=== PATIENT | female | born 1950 | race Caucasian/White ===

== ENCOUNTER 2020-09-05 06:24 | Observation (INO) | payer OTHER, MEDICARE ==
--- NOTE | 2020-09-05 06:52 | EDM.PDOC ---
<Juan Carlos Rossi M - Last Filed: 09/05/20 06:49> ED HPI GENERAL MEDICAL PROBLEM - General Chief Complaint: General Time Seen by Provider: 09/05/20 06:49 Source of Information: Reports: Patient History Limitations: Reports: No Limitations - History of Present Illness INITIAL COMMENTS - FREE TEXT/NARRATIVE: Eli arrives in the ED with her relative. Since yesterday she has had right ear pain,cough,and dizziness. Her grandson has been diagnosed with Srepthroat. She is fully immunized against COVID-19. Her Medical history includes GERD,HTN and HLD. She dinies any fever or chills. - Related Data Allergies Allergy/AdvReac Type Severity Reaction Status Date / Time No Known Allergies Allergy Verified 09/05/20 06:31 Home Meds: Home Meds Acetaminophen [Tactinal] 650 mg PO Q4H PRN 09/05/20 [History] Calcium Carbonate/Vitamin D3 [Calcium 600-Vit D3 800 Tab] 1 tab PO DAILY 09/05/20 [History] Ferrous Sulfate [Slow Release Iron] 250 mg PO DAILY 09/05/20 [History] Ibuprofen 200 mg PO Q6H PRN 09/05/20 [History] Pantoprazole Sodium [Protonix] 40 mg PO DAILY 09/05/20 [History] Rosuvastatin [Crestor] 10 mg PO DAILY 09/05/20 [History] lisinopriL [Lisinopril] 10 mg PO DAILY 09/05/20 [History] Past Medical History HEENT History: Reports: Cataract, Glaucoma, Hard of Hearing Cardiovascular History: Reports: High Cholesterol, Hypertension Respiratory History: Reports: Bronchitis, Recurrent Gastrointestinal History: Reports: GERD 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 ED EXAM, GENERAL - Physical Exam Exam: See Below Exam Limited By: No Limitations General Appearance: Alert, WD/WN Ears: Normal External Exam Ear Exam: Bilateral Ear: Auricle Normal, Canal Normal, TM normal Throat/Mouth: Normal Inspection Head: Atraumatic Respiratory/Chest: No Respiratory Distress, Lungs Clear, Normal Breath Sounds Departure - Departure Disposition: Refer to Observation Clinical Impression: Acute bronchitis with bronchospasm, Acute respiratory alkalosis, Elevated brain natriuretic peptide (BNP) level, Elevated WBC count, Left shift, Elevated C- reactive protein (CRP), Moderate dehydration, Ketonuria, Tension headache, Fever, Former smoker - Discharge Information Referrals: Myrna Matta, [employer] [Primary Care Provider] - Forms: ED Department Discharge Sepsis Event Note (ED) - Evaluation Sepsis Screening Result: No Definite Risk - Problem List & Annotations (1) LRTI (lower respiratory tract infection) SNOMED Code(s): 20741778 Code(s): J22 - UNSPECIFIED ACUTE LOWER RESPIRATORY INFECTION Status: Acute (2) Otalgia SNOMED Code(s): 03489181 Code(s): H92.09 - OTALGIA, UNSPECIFIED EAR Status: Acute - Problem List Review Problem List Initiated/Reviewed/Updated: Yes <Diego Linn - Last Filed: 09/05/20 09:05> ED HPI GENERAL MEDICAL PROBLEM - History of Present Illness INITIAL COMMENTS - FREE TEXT/NARRATIVE: c/o dizzy and sob x 24h temp 100.8 at home lives alone, has 2 grandchildren, one with strep smoked in past, stopped 40y ago no h/o COPD or asthma, has had bronchitis in past no heart issues in past EKG with mild tachy, no acute changes, no comparison did have wheezing on arrival, cleared with Duoneb x 1 altho still feels sob CxR 2v on prelim ED read without infiltrate or effusion, prominence of interstitial markings noted may be viral altho degree of CRP elevation impressive has GRAJEDA, given APAP 1000 mg PO and Toradol IV no fever here, took no APAP at home today ED ROS GENERAL - Review of Systems Review Of Systems: See Below Constitutional: Reports: Fever, Weakness, Decreased Appetite HEENT: Reports: No Symptoms Respiratory: Reports: Shortness of Breath Cardiovascular: Reports: Lightheadedness. Denies: Chest Pain Endocrine: Reports: No Symptoms GI/Abdominal: Reports: No Symptoms : Reports: No Symptoms Musculoskeletal: Reports: No Symptoms Skin: Reports: No Symptoms Neurological: Reports: No Symptoms Psychiatric: Reports: No Symptoms Hematologic/Lymphatic: Reports: No Symptoms Immunologic: Reports: No Symptoms ED EXAM, GENERAL - Physical Exam Exam Limited By: No Limitations General Appearance: Alert, WD/WN, Mild Distress, Other (appears mild ill, weak) Eye Exam: Bilateral Eye: PERRL Ears: Hearing Grossly Normal Nose: Normal Inspection Throat/Mouth: Normal Voice, No Airway Compromise Head: Atraumatic, Normocephalic Respiratory/Chest: Other (mild insp/exp wheeze, no purse lips, no retractions, using accessory muscles, talks 8-10 word sentences) Cardiovascular: Regular Rate, Rhythm, No Edema, No Gallop, Tachycardia, Other (2/6 MOOK at LSB) GI/Abdominal: Soft, Non-Tender, No Distention Back Exam: Normal Inspection, Full Range of Motion. No: CVA Tenderness (R), CVA Tenderness (L) Extremities: Normal Inspection, Non-Tender, No Pedal Edema Neurological: Alert, Oriented, CN II-XII Intact, Normal Cognition, No Motor/Sensory Deficits Psychiatric: Normal Affect, Normal Mood Skin Exam: Warm, Dry, Intact, Normal Color, No Rash Lymphatic: No Adenopathy Course - Vital Signs Last Recorded V/S: Last Vital Signs Temp 37.1 C 09/05/20 08:20 Pulse 96 09/05/20 08:20 Resp 19 09/05/20 08:20 BP 142/77 H 09/05/20 08:20 Pulse Ox 95 09/05/20 08:20 - Orders/Labs/Meds Orders: Active Orders 24 hr Category Date Time Status EKG Documentation Completion [RC] ASDIRECTED Care 09/05/20 07:01 Active RT Aerosol Therapy [RC] ASDIRECTED Care 09/05/20 07:01 Active RT Aerosol Therapy [RC] ASDIRECTED Care 09/05/20 08:44 Ordered CXR [Chest 2V] [CR] Stat Exams 09/05/20 06:49 Taken CORONAVIRUS COVID-19 TIFFANIE [MOLEC] Stat Lab 09/05/20 07:17 Ordered CULTURE BLOOD [BC] Urgent Lab 09/05/20 07:32 Received CULTURE BLOOD [BC] Urgent Lab 09/05/20 07:37 Received Levofloxacin/Dextrose 5%-Water [Levaquin in D5W 750 MG/ Med 09/05/20 08:17 Ordered 150 ML] 750 mg Premix Bag 1 bag IV ONETIME Blood Culture x2 Reflex Set [OM.PC] Urgent Oth 09/05/20 07:14 Ordered Isolation [COMM] Routine Oth 09/05/20 07:17 Ordered EKG 12 Lead [EK] Routine Ther 09/05/20 07:01 Ordered Medication Orders Levofloxacin/Dextrose 750 mg/ (Premix) 150 mls @ 100 mls/hr IV ONETIME ONE Stop: 09/05/20 09:46 Last Admin: 09/05/20 08:17 Dose: 100 mls/hr Documented by: KISHAN Labs: Laboratory Tests 09/05/20 09/05/20 09/05/20 Range/Units 06:50 07:00 07:00 WBC 13.1 H (3.0-10.3) x10-3/uL RBC 4.76 (3.60-5.20) x10(6)uL Hgb 15.2 (11.4-15.5) g/dL Hct 44.9 (34.2-48.2) % MCV 94.2 (76.7-100.5) fL MCH 31.9 (23.9-33.9) pg MCHC 33.9 (31.9-34.8) g/dL RDW 12.5 (12.3-16.5) % Plt Count 120 L (151-488) x10(3)uL MPV 12.3 (7.1-12.4) fL Neut % (Auto) 85.8 H (30.8-76.2) % Lymph % (Auto) 4.9 L (18.4-52.1) % [place] % (Auto) 8.3 (4.4-15.7) % Eos % (Auto) 0.8 (0.6-8.1) % Baso % (Auto) 0.2 (0.2-1.5) % Neut # (Auto) 11.3 H (1.5-6.3) x10-3/uL Lymph # (Auto) 0.6 L (1.0-4.4) x10-3/uL [place] # (Auto) 1.1 H (0.3-1.0) x10-3/uL Eos # (Auto) 0.1 (0.0-0.8) x10-3/uL Baso # (Auto) 0.0 (0.0-0.1) x10-3/uL POC VBG pH (7.32-7.43) pH Units POC VBG pCO2 (41-51) mmHg POC VBG HCO3 (21-29) mmol/L VBG Base Excess (-2-3) mmol/L O2 Delivery Device Sodium 140 (135-145) mmol/L Potassium 4.0 (3.5-5.3) mmol/L Chloride 102 (100-110) mmol/L Carbon Dioxide 25 (21-32) mmol/L BUN 16 (7-18) mg/dL Creatinine 1.0 (0.55-1.02) mg/dL Est Cr Clr Drug Dosing TNP Estimated GFR (MDRD) 55 L (>60) BUN/Creatinine Ratio 16.0 (9-20) Glucose 146 H (80-116) mg/dL Lactic Acid 1.1 (0.4-2.0) mmol/L Calcium 9.2 (8.6-10.2) mg/dL Total Bilirubin 0.6 (0.1-1.3) mg/dL AST 17 (5-25) IU/L ALT 27 (12-36) U/L Alkaline Phosphatase 78 (56-112) IU/L Troponin I (4.0-60.3) pg/mL C-Reactive Protein (0.5-0.9) mg/dL NT-Pro-B Natriuret Pep (<=125) pg/mL Total Protein 7.6 (6.0-8.0) g/dL Albumin 3.3 (3.2-4.6) g/dL Globulin 4.3 g/dL Albumin/Globulin Ratio 0.8 Urine Color (YELLOW) Urine Appearance (CLEAR) Urine pH (5.0-6.5) Ur Specific [place] (1.010-1.025) Urine Protein (NEGATIVE) mg/dL Urine Glucose (UA) (NORMAL) mg/dL Urine Ketones (NEGATIVE) mg/dL Urine Occult Blood (NEGATIVE) Urine Nitrite (NEGATIVE) Urine Bilirubin (NEGATIVE) Urine Urobilinogen (NEGATIVE) mg/dL Ur Leukocyte Esterase (NEGATIVE) Urine RBC (0-5) Urine WBC (0-5) Ur Squamous Epith Cells (NS,R,O) Urine Bacteria (NS) Urine Mucus (NS) Group A Strep (PCR) (NOT DETECT) 09/05/20 09/05/20 09/05/20 Range/Units 07:00 07:00 07:10 WBC (3.0-10.3) x10-3/uL RBC (3.60-5.20) x10(6)uL Hgb (11.4-15.5) g/dL Hct (34.2-48.2) % MCV (76.7-100.5) fL MCH (23.9-33.9) pg MCHC (31.9-34.8) g/dL RDW (12.3-16.5) % Plt Count (151-488) x10(3)uL MPV (7.1-12.4) fL Neut % (Auto) (30.8-76.2) % Lymph % (Auto) (18.4-52.1) % [place] % (Auto) (4.4-15.7) % Eos % (Auto) (0.6-8.1) % Baso % (Auto) (0.2-1.5) % Neut # (Auto) (1.5-6.3) x10-3/uL Lymph # (Auto) (1.0-4.4) x10-3/uL [place] # (Auto) (0.3-1.0) x10-3/uL Eos # (Auto) (0.0-0.8) x10-3/uL Baso # (Auto) (0.0-0.1) x10-3/uL POC VBG pH (7.32-7.43) pH Units POC VBG pCO2 (41-51) mmHg POC VBG HCO3 (21-29) mmol/L VBG Base Excess (-2-3) mmol/L O2 Delivery Device Sodium (135-145) mmol/L Potassium (3.5-5.3) mmol/L Chloride (100-110) mmol/L Carbon Dioxide (21-32) mmol/L BUN (7-18) mg/dL Creatinine (0.55-1.02) mg/dL Est Cr Clr Drug Dosing Estimated GFR (MDRD) (>60) BUN/Creatinine Ratio (9-20) Glucose (80-116) mg/dL Lactic Acid (0.4-2.0) mmol/L Calcium (8.6-10.2) mg/dL Total Bilirubin (0.1-1.3) mg/dL AST (5-25) IU/L ALT (12-36) U/L Alkaline Phosphatase (56-112) IU/L Troponin I 5.6 (4.0-60.3) pg/mL C-Reactive Protein 8.9 H* (0.5-0.9) mg/dL NT-Pro-B Natriuret Pep 152 H (<=125) pg/mL Total Protein (6.0-8.0) g/dL Albumin (3.2-4.6) g/dL Globulin g/dL Albumin/Globulin Ratio Urine Color (YELLOW) Urine Appearance (CLEAR) Urine pH (5.0-6.5) Ur Specific [place] (1.010-1.025) Urine Protein (NEGATIVE) mg/dL Urine Glucose (UA) (NORMAL) mg/dL Urine Ketones (NEGATIVE) mg/dL Urine Occult Blood (NEGATIVE) Urine Nitrite (NEGATIVE) Urine Bilirubin (NEGATIVE) Urine Urobilinogen (NEGATIVE) mg/dL Ur Leukocyte Esterase (NEGATIVE) Urine RBC (0-5) Urine WBC (0-5) Ur Squamous Epith Cells (NS,R,O) Urine Bacteria (NS) Urine Mucus (NS) Group A Strep (PCR) (NOT DETECT) 09/05/20 09/05/20 09/05/20 Range/Units 07:32 07:50 08:15 WBC (3.0-10.3) x10-3/uL RBC (3.60-5.20) x10(6)uL Hgb (11.4-15.5) g/dL Hct (34.2-48.2) % MCV (76.7-100.5) fL MCH (23.9-33.9) pg MCHC (31.9-34.8) g/dL RDW (12.3-16.5) % Plt Count (151-488) x10(3)uL MPV (7.1-12.4) fL Neut % (Auto) (30.8-76.2) % Lymph % (Auto) (18.4-52.1) % [place] % (Auto) (4.4-15.7) % Eos % (Auto) (0.6-8.1) % Baso % (Auto) (0.2-1.5) % Neut # (Auto) (1.5-6.3) x10-3/uL Lymph # (Auto) (1.0-4.4) x10-3/uL [place] # (Auto) (0.3-1.0) x10-3/uL Eos # (Auto) (0.0-0.8) x10-3/uL Baso # (Auto) (0.0-0.1) x10-3/uL POC VBG pH 7.52 H (7.32-7.43) pH Units POC VBG pCO2 26 L (41-51) mmHg POC VBG HCO3 21 (21-29) mmol/L VBG Base Excess 0 (-2-3) mmol/L O2 Delivery Device Room air Sodium (135-145) mmol/L Potassium (3.5-5.3) mmol/L Chloride (100-110) mmol/L Carbon Dioxide (21-32) mmol/L BUN (7-18) mg/dL Creatinine (0.55-1.02) mg/dL Est Cr Clr Drug Dosing Estimated GFR (MDRD) (>60) BUN/Creatinine Ratio (9-20) Glucose (80-116) mg/dL Lactic Acid (0.4-2.0) mmol/L Calcium (8.6-10.2) mg/dL Total Bilirubin (0.1-1.3) mg/dL AST (5-25) IU/L ALT (12-36) U/L Alkaline Phosphatase (56-112) IU/L Troponin I (4.0-60.3) pg/mL C-Reactive Protein (0.5-0.9) mg/dL NT-Pro-B Natriuret Pep (<=125) pg/mL Total Protein (6.0-8.0) g/dL Albumin (3.2-4.6) g/dL Globulin g/dL Albumin/Globulin Ratio Urine Color Yellow (YELLOW) Urine Appearance Clear (CLEAR) Urine pH 5.0 (5.0-6.5) Ur Specific [place] 1.025 (1.010-1.025) Urine Protein Trace (NEGATIVE) mg/dL Urine Glucose (UA) Normal (NORMAL) mg/dL Urine Ketones 50 H (NEGATIVE) mg/dL Urine Occult Blood Negative (NEGATIVE) Urine Nitrite Negative (NEGATIVE) Urine Bilirubin Small H (NEGATIVE) Urine Urobilinogen Normal (NEGATIVE) mg/dL Ur Leukocyte Esterase Negative (NEGATIVE) Urine RBC 0-5 (0-5) Urine WBC 0-5 (0-5) Ur Squamous Epith Cells Occasional (NS,R,O) Urine Bacteria Few H (NS) Urine Mucus Many H (NS) Group A Strep (PCR) Not detected (NOT DETECT) Meds: Medications Generic Name Dose Route Start Last Admin Trade Name Freq PRN Reason Stop Dose Admin Levofloxacin/Dextrose 750 mg/ 150 mls @ 100 mls/hr 09/05/20 08:17 09/05/20 08:17 Premix IV 09/05/20 09:46 100 mls/hr ONETIME ONE Administration Discontinued Medications Generic Name Dose Route Start Last Admin Trade Name Freq PRN Reason Stop Dose Admin Acetaminophen 1,000 mg 09/05/20 07:39 09/05/20 07:40 Acetaminophen 500 Mg Tab PO 09/05/20 07:40 1,000 mg ONETIME ONE Administration Acetaminophen Confirm 09/05/20 07:40 Acetaminophen 500 Mg Tab Administered 09/05/20 07:41 Dose 1,000 mg .ROUTE .STK-MED ONE Albuterol/Ipratropium Confirm 09/05/20 07:14 Albuterol/Ipratropium 3.0-0.5 Mg/3 Ml Neb Soln Administered 09/05/20 07:15 Dose 3 ml .ROUTE .STK-MED ONE Albuterol/Ipratropium 3 ml 09/05/20 07:01 09/05/20 07:14 Albuterol/Ipratropium 3.0-0.5 Mg/3 Ml Neb Soln NEB 09/05/20 07:02 3 ml ONETIME ONE Administration Albuterol/Ipratropium 3 ml 09/05/20 08:44 Albuterol/Ipratropium 3.0-0.5 Mg/3 Ml Neb Soln NEB 09/05/20 08:45 ONETIME ONE Sodium Chloride 1,000 mls @ 999 mls/hr 09/05/20 07:31 09/05/20 07:50 Normal Saline IV 09/05/20 08:31 999 mls/hr .BOLUS ONE Administration Ketorolac Tromethamine 30 mg 09/05/20 07:38 09/05/20 07:55 Ketorolac 30 Mg/Ml Sdv IVPUSH 09/05/20 07:39 30 mg ONETIME ONE Administration Methylprednisolone Sodium Succinate 125 mg 09/05/20 07:16 09/05/20 08:00 Methylprednisolone Sodium Succinate 125 Mg/2 Ml Sdv IVPUSH 09/05/20 07:17 125 mg ONETIME ONE Administration - Re-Assessments/Exams Free Text/Narrative Re-Assessment/Exam: 09/05/20 08:58 wheezing cleared after Duoneb x 1, then after an hour it returned and pt was developing a cough which has been nonproductive d/w Dr Crow who commented that pt's sxs sound like a COPD exacerbation, which may be the case although pt has not had a dx of COPD and diaphragms are not flattened d/t severity of pul and CV sxs, admission to obs bed recommended, Dr Crow accepted pt still tachy in low 100s after 500 ml NS GRAJEDA gone after Toradol and APAP urine with 50 mg/dl ketones, no criteria for UTI influenza neg Departure - Departure Time of Disposition: 08:56 Condition: Fair - Discharge Information *PRESCRIPTION DRUG MONITORING PROGRAM REVIEWED*: Not Applicable *COPY OF PRESCRIPTION DRUG MONITORING REPORT IN PATIENT SHEN: Not Applicable Sepsis Event Note (ED) - Focused Exam Vital Signs: Vital Signs Temp Pulse Resp BP Pulse Ox 09/05/20 08:20 37.1 C 96 19 142/77 H 95 09/05/20 06:31 36.9 C 113 H 18 143/79 H 96 - My Orders Last 24 Hours: My Active Orders 09/05/20 07:01 EKG Documentation Completion [RC] ASDIRECTED RT Aerosol Therapy [RC] ASDIRECTED EKG 12 Lead [EK] Routine 09/05/20 07:14 Blood Culture x2 Reflex Set [OM.PC] Urgent 09/05/20 07:17 CORONAVIRUS COVID-19 TIFFANIE [MOLEC] Stat Isolation [COMM] Routine 09/05/20 07:32 CULTURE BLOOD [BC] Urgent 09/05/20 07:37 CULTURE BLOOD [BC] Urgent 09/05/20 08:17 Levofloxacin/Dextrose 5%-Water [Levaquin in D5W 750 MG/150 ML] 750 mg Premix Bag 1 bag IV ONETIME 09/05/20 08:44 RT Aerosol Therapy [RC] ASDIRECTED - Assessment/Plan Last 24 Hours: My Active Orders 09/05/20 07:01 EKG Documentation Completion [RC] ASDIRECTED RT Aerosol Therapy [RC] ASDIRECTED EKG 12 Lead [EK] Routine 09/05/20 07:14 Blood Culture x2 Reflex Set [OM.PC] Urgent 09/05/20 07:17 CORONAVIRUS COVID-19 TIFFANIE [MOLEC] Stat Isolation [COMM] Routine 09/05/20 07:32 CULTURE BLOOD [BC] Urgent 09/05/20 07:37 CULTURE BLOOD [BC] Urgent 09/05/20 08:17 Levofloxacin/Dextrose 5%-Water [Levaquin in D5W 750 MG/150 ML] 750 mg Premix Bag 1 bag IV ONETIME 09/05/20 08:44 RT Aerosol Therapy [RC] ASDIRECTED
[2020-09-05] MEDS ORDERED: Albuterol/Ipratropium 3.0-0.5 MG/3 ML Neb Soln NEB ONE ×2 (07:01→08:44)
[2020-09-05] MEDS ORDERED: Albuterol/Ipratropium 3.0-0.5 MG/3 ML Neb Soln ONE (07:14)
[2020-09-05] MEDS ORDERED: methylPREDNISolone Sodium Succinate 125 MG/2 ML SDV IVPUSH ONE (07:16)
[2020-09-05] MEDS ORDERED: Sodium Chloride 0.9% 1,000 ML IV ONE (07:31)
[2020-09-05] MEDS ORDERED: Ketorolac 30 MG/ML SDV IVPUSH ONE (07:38)
[2020-09-05] MEDS ORDERED: Acetaminophen 500 MG Tab PO ONE (07:39)
[2020-09-05] MEDS ORDERED: Acetaminophen 500 MG Tab ONE (07:40)
[2020-09-05 07:47] LABS: BASE EXCESS VENOUS,POC 0 mmol/L (-2-3); HCO3 VENOUS,POC 21 mmol/L (21-29); PCO2 VENOUS,POC 26 mmHg (41-51); PH VENOUS,POC 7.52 pH Units (7.32-7.43)
[2020-09-05] MEDS ORDERED: Levofloxacin/Dextrose 5%-Water 750 MG in Premix Bag 1 BAG IV ONE (08:17)
[2020-09-05] MEDS ORDERED: Lisinopril 10 MG Tab PO SCH (09:00)
[2020-09-05] MEDS ORDERED: Pantoprazole 40 MG Tab.CR PO SCH (09:00)
[2020-09-05] MEDS ORDERED: Levofloxacin/Dextrose 5%-Water 500 MG in Premix Bag 1 BAG IV SCH (09:30)
[2020-09-05] MEDS ORDERED: Rosuvastatin 10 MG Tab PO SCH (09:30)
[2020-09-05] MEDS ORDERED: Sodium Chloride 0.9% 1,000 ML IV SCH (09:30)
[2020-09-05] MEDS ORDERED: Acetaminophen 500 MG Tab PO PRN (09:43)
[2020-09-05] MEDS ORDERED: Ibuprofen 200 MG Tab PO PRN (09:43)
--- NOTE | 2020-09-05 10:22 | PCM.HP.2 ---
H&P History of Present Illness - General Date of Service: 09/05/20 Admit Problem/Dx: Acute Bronchitis, Shortness of breath, ?COPD exacerbation Source of Information: Patient, Provider History Limitations: Reports: No Limitations - History of Present Illness Initial Comments - Free Text/Narative: Eli started having shortness of breath, fever, cough, sore throat yesterday. Highest Temp was 100.4, states her normal is 97F. She has had productive cough of clear thick sputum. Her shortness of breath was worsening today so she call [place] and they advised her to come to ER. She was driving to [place] and stopped at [facility] as she didn't feel she could make it to [facility]. She denies any sinus pain, drainage. No chest pain. No nausea, vomiting, constipation or diarrhea. No dysuria, hematuria or frequency. No rash. History of tobacco use. In ER: WBC 13. 1, Hgb 15.2, Plts 120(low), COVID NEGATIVE by RT-PCR, Strep NEG, Influenza NEG, Na 140, K4.0, CO2 25, BUN 16, Cr 1.0, LFTs within normal limits. Troponin 5.6(4-60.0 normal), CRP 8.9, proBNP 152. Venous blood gas: pH 7.52, pC O2 26(L), pHCO3 21, base excess 0, on room air. UA negative for infection, 50 ketones, small bilirubin occasional epithelial cells, few bacteria, many mucus. CXR negative. She received DuoNebs x 2, SoluMedrol 125 mg IV x 1, Levofloxacin 750 mg IV x 1, NS 1L bolus and now at 100 ml/hr. - Related Data Allergies/Adverse Reactions: Allergies Allergy/AdvReac Type Severity Reaction Status Date / Time No Known Allergies Allergy Verified 09/05/20 10:12 Home Medications: Home Meds Acetaminophen [Tactinal] 650 mg PO Q4H PRN 09/05/20 [History] Calcium Carbonate/Vitamin D3 [Calcium 600-Vit D3 800 Tab] 1 tab PO DAILY 09/05/20 [History] Ferrous Sulfate [Slow Release Iron] 250 mg PO DAILY 09/05/20 [History] Ibuprofen 200 mg PO Q6H PRN 09/05/20 [History] Pantoprazole Sodium [Protonix] 40 mg PO DAILY 09/05/20 [History] Rosuvastatin [Crestor] 10 mg PO DAILY 09/05/20 [History] lisinopriL [Lisinopril] 10 mg PO DAILY 09/05/20 [History] Past Medical History HEENT History: Reports: Cataract, Glaucoma, Hard of Hearing Cardiovascular History: Reports: High Cholesterol, Hypertension Respiratory History: Reports: Bronchitis, Recurrent Gastrointestinal History: Reports: GERD 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 Exam - Exam Exam: See Below - Vital Signs Vital Signs: Last Vital Signs Temp 99.5 F 09/05/20 09:35 Pulse 118 H 09/05/20 09:35 Resp 20 09/05/20 09:35 BP 135/79 09/05/20 09:35 Pulse Ox 94 L 09/05/20 09:35 Weight: 169 lb 9.6 oz - Exam Quality Assessment: No: Supplemental Oxygen General: Alert, Oriented, Cooperative. No: Mild Distress HEENT: PERRLA, Conjunctiva Clear, EOMI, Hearing Intact, Mucosa Moist & [place], Nares Patent, Normal Nasal Septum, Posterior Pharynx Clear, Other (Sinus: NT) Neck: Supple, Trachea Midline. No: Lymphadenopathy Lungs: Clear to Auscultation, Decreased Breath Sounds (bibasilar), Wheezing. No: Normal Respiratory Effort (increased), Crackles Cardiovascular: Tachycardia GI/Abdominal Exam: Normal Bowel Sounds, Soft, Non-Tender, No Distention (Female) Exam: Deferred Rectal (Female) Exam: Deferred Extremities: No Pedal Edema, Normal Capillary Refill Peripheral Pulses: 2+: Radial (L), Radial (R), Posterior Tibial (L), Posterior Tibial (R), Dorsalis Pedis (L), Dorsalis Pedis (R) Skin: Warm, Dry, Intact Neurological: Cranial Nerves Intact, Normal Speech, Normal Tone - Patient Data Lab Results Last 24 hrs: Laboratory Results - last 24 hr 07/09/05/20 09/05/20 Range/Units 06:50 07:00 07:00 WBC 13.1 H (3.0-10.3) x10-3/uL RBC 4.76 (3.60-5.20) x10(6)uL Hgb 15.2 (11.4-15.5) g/dL Hct 44.9 (34.2-48.2) % MCV 94.2 (76.7-100.5) fL MCH 31.9 (23.9-33.9) pg MCHC 33.9 (31.9-34.8) g/dL RDW 12.5 (12.3-16.5) % Plt Count 120 L (151-488) x10(3)uL MPV 12.3 (7.1-12.4) fL Neut % (Auto) 85.8 H (30.8-76.2) % Lymph % (Auto) 4.9 L (18.4-52.1) % Dawes % (Auto) 8.3 (4.4-15.7) % Eos % (Auto) 0.8 (0.6-8.1) % Baso % (Auto) 0.2 (0.2-1.5) % Neut # (Auto) 11.3 H (1.5-6.3) x10-3/uL Lymph # (Auto) 0.6 L (1.0-4.4) x10-3/uL Dawes # (Auto) 1.1 H (0.3-1.0) x10-3/uL Eos # (Auto) 0.1 (0.0-0.8) x10-3/uL Baso # (Auto) 0.0 (0.0-0.1) x10-3/uL POC VBG pH (7.32-7.43) pH Units POC VBG pCO2 (41-51) mmHg POC VBG HCO3 (21-29) mmol/L VBG Base Excess (-2-3) mmol/L O2 Delivery Device Sodium 140 (135-145) mmol/L Potassium 4.0 (3.5-5.3) mmol/L Chloride 102 (100-110) mmol/L Carbon Dioxide 25 (21-32) mmol/L BUN 16 (7-18) mg/dL Creatinine 1.0 (0.55-1.02) mg/dL Est Cr Clr Drug Dosing TNP Estimated GFR (MDRD) 55 L (>60) BUN/Creatinine Ratio 16.0 (9-20) Glucose 146 H (80-116) mg/dL Lactic Acid 1.1 (0.4-2.0) mmol/L Calcium 9.2 (8.6-10.2) mg/dL Total Bilirubin 0.6 (0.1-1.3) mg/dL AST 17 (5-25) IU/L ALT 27 (12-36) U/L Alkaline Phosphatase 78 (56-112) IU/L Troponin I (4.0-60.3) pg/mL C-Reactive Protein (0.5-0.9) mg/dL NT-Pro-B Natriuret Pep (<=125) pg/mL Total Protein 7.6 (6.0-8.0) g/dL Albumin 3.3 (3.2-4.6) g/dL Globulin 4.3 g/dL Albumin/Globulin Ratio 0.8 Urine Color (YELLOW) Urine Appearance (CLEAR) Urine pH (5.0-6.5) Ur Specific [place] (1.010-1.025) Urine Protein (NEGATIVE) mg/dL Urine Glucose (UA) (NORMAL) mg/dL Urine Ketones (NEGATIVE) mg/dL Urine Occult Blood (NEGATIVE) Urine Nitrite (NEGATIVE) Urine Bilirubin (NEGATIVE) Urine Urobilinogen (NEGATIVE) mg/dL Ur Leukocyte Esterase (NEGATIVE) Urine RBC (0-5) Urine WBC (0-5) Ur Squamous Epith Cells (NS,R,O) Urine Bacteria (NS) Urine Mucus (NS) SARS-CoV-2 RNA (TIFFANIE) (NEGATIVE) Group A Strep (PCR) (NOT DETECT) 09/05/20 09/05/20 09/05/20 Range/Units 07:00 07:00 07:10 WBC (3.0-10.3) x10-3/uL RBC (3.60-5.20) x10(6)uL Hgb (11.4-15.5) g/dL Hct (34.2-48.2) % MCV (76.7-100.5) fL MCH (23.9-33.9) pg MCHC (31.9-34.8) g/dL RDW (12.3-16.5) % Plt Count (151-488) x10(3)uL MPV (7.1-12.4) fL Neut % (Auto) (30.8-76.2) % Lymph % (Auto) (18.4-52.1) % Dawes % (Auto) (4.4-15.7) % Eos % (Auto) (0.6-8.1) % Baso % (Auto) (0.2-1.5) % Neut # (Auto) (1.5-6.3) x10-3/uL Lymph # (Auto) (1.0-4.4) x10-3/uL Dawes # (Auto) (0.3-1.0) x10-3/uL Eos # (Auto) (0.0-0.8) x10-3/uL Baso # (Auto) (0.0-0.1) x10-3/uL POC VBG pH (7.32-7.43) pH Units POC VBG pCO2 (41-51) mmHg POC VBG HCO3 (21-29) mmol/L VBG Base Excess (-2-3) mmol/L O2 Delivery Device Sodium (135-145) mmol/L Potassium (3.5-5.3) mmol/L Chloride (100-110) mmol/L Carbon Dioxide (21-32) mmol/L BUN (7-18) mg/dL Creatinine (0.55-1.02) mg/dL Est Cr Clr Drug Dosing Estimated GFR (MDRD) (>60) BUN/Creatinine Ratio (9-20) Glucose (80-116) mg/dL Lactic Acid (0.4-2.0) mmol/L Calcium (8.6-10.2) mg/dL Total Bilirubin (0.1-1.3) mg/dL AST (5-25) IU/L ALT (12-36) U/L Alkaline Phosphatase (56-112) IU/L Troponin I 5.6 (4.0-60.3) pg/mL C-Reactive Protein 8.9 H* (0.5-0.9) mg/dL NT-Pro-B Natriuret Pep 152 H (<=125) pg/mL Total Protein (6.0-8.0) g/dL Albumin (3.2-4.6) g/dL Globulin g/dL Albumin/Globulin Ratio Urine Color (YELLOW) Urine Appearance (CLEAR) Urine pH (5.0-6.5) Ur Specific [place] (1.010-1.025) Urine Protein (NEGATIVE) mg/dL Urine Glucose (UA) (NORMAL) mg/dL Urine Ketones (NEGATIVE) mg/dL Urine Occult Blood (NEGATIVE) Urine Nitrite (NEGATIVE) Urine Bilirubin (NEGATIVE) Urine Urobilinogen (NEGATIVE) mg/dL Ur Leukocyte Esterase (NEGATIVE) Urine RBC (0-5) Urine WBC (0-5) Ur Squamous Epith Cells (NS,R,O) Urine Bacteria (NS) Urine Mucus (NS) SARS-CoV-2 RNA (TIFFANIE) (NEGATIVE) Group A Strep (PCR) (NOT DETECT) 09/05/20 09/05/20 09/05/20 Range/Units 07:32 07:50 08:15 WBC (3.0-10.3) x10-3/uL RBC (3.60-5.20) x10(6)uL Hgb (11.4-15.5) g/dL Hct (34.2-48.2) % MCV (76.7-100.5) fL MCH (23.9-33.9) pg MCHC (31.9-34.8) g/dL RDW (12.3-16.5) % Plt Count (151-488) x10(3)uL MPV (7.1-12.4) fL Neut % (Auto) (30.8-76.2) % Lymph % (Auto) (18.4-52.1) % Dawes % (Auto) (4.4-15.7) % Eos % (Auto) (0.6-8.1) % Baso % (Auto) (0.2-1.5) % Neut # (Auto) (1.5-6.3) x10-3/uL Lymph # (Auto) (1.0-4.4) x10-3/uL Dawes # (Auto) (0.3-1.0) x10-3/uL Eos # (Auto) (0.0-0.8) x10-3/uL Baso # (Auto) (0.0-0.1) x10-3/uL POC VBG pH 7.52 H (7.32-7.43) pH Units POC VBG pCO2 26 L (41-51) mmHg POC VBG HCO3 21 (21-29) mmol/L VBG Base Excess 0 (-2-3) mmol/L O2 Delivery Device Room air Sodium (135-145) mmol/L Potassium (3.5-5.3) mmol/L Chloride (100-110) mmol/L Carbon Dioxide (21-32) mmol/L BUN (7-18) mg/dL Creatinine (0.55-1.02) mg/dL Est Cr Clr Drug Dosing Estimated GFR (MDRD) (>60) BUN/Creatinine Ratio (9-20) Glucose (80-116) mg/dL Lactic Acid (0.4-2.0) mmol/L Calcium (8.6-10.2) mg/dL Total Bilirubin (0.1-1.3) mg/dL AST (5-25) IU/L ALT (12-36) U/L Alkaline Phosphatase (56-112) IU/L Troponin I (4.0-60.3) pg/mL C-Reactive Protein (0.5-0.9) mg/dL NT-Pro-B Natriuret Pep (<=125) pg/mL Total Protein (6.0-8.0) g/dL Albumin (3.2-4.6) g/dL Globulin g/dL Albumin/Globulin Ratio Urine Color Yellow (YELLOW) Urine Appearance Clear (CLEAR) Urine pH 5.0 (5.0-6.5) Ur Specific [place] 1.025 (1.010-1.025) Urine Protein Trace (NEGATIVE) mg/dL Urine Glucose (UA) Normal (NORMAL) mg/dL Urine Ketones 50 H (NEGATIVE) mg/dL Urine Occult Blood Negative (NEGATIVE) Urine Nitrite Negative (NEGATIVE) Urine Bilirubin Small H (NEGATIVE) Urine Urobilinogen Normal (NEGATIVE) mg/dL Ur Leukocyte Esterase Negative (NEGATIVE) Urine RBC 0-5 (0-5) Urine WBC 0-5 (0-5) Ur Squamous Epith Cells Occasional (NS,R,O) Urine Bacteria Few H (NS) Urine Mucus Many H (NS) SARS-CoV-2 RNA (TIFFANIE) Negative (NEGATIVE) Group A Strep (PCR) (NOT DETECT) 09/05/20 Range/Units 08:15 WBC (3.0-10.3) x10-3/uL RBC (3.60-5.20) x10(6)uL Hgb (11.4-15.5) g/dL Hct (34.2-48.2) % MCV (76.7-100.5) fL MCH (23.9-33.9) pg MCHC (31.9-34.8) g/dL RDW (12.3-16.5) % Plt Count (151-488) x10(3)uL MPV (7.1-12.4) fL Neut % (Auto) (30.8-76.2) % Lymph % (Auto) (18.4-52.1) % Dawes % (Auto) (4.4-15.7) % Eos % (Auto) (0.6-8.1) % Baso % (Auto) (0.2-1.5) % Neut # (Auto) (1.5-6.3) x10-3/uL Lymph # (Auto) (1.0-4.4) x10-3/uL Dawes # (Auto) (0.3-1.0) x10-3/uL Eos # (Auto) (0.0-0.8) x10-3/uL Baso # (Auto) (0.0-0.1) x10-3/uL POC VBG pH (7.32-7.43) pH Units POC VBG pCO2 (41-51) mmHg POC VBG HCO3 (21-29) mmol/L VBG Base Excess (-2-3) mmol/L O2 Delivery Device Sodium (135-145) mmol/L Potassium (3.5-5.3) mmol/L Chloride (100-110) mmol/L Carbon Dioxide (21-32) mmol/L BUN (7-18) mg/dL Creatinine (0.55-1.02) mg/dL Est Cr Clr Drug Dosing Estimated GFR (MDRD) (>60) BUN/Creatinine Ratio (9-20) Glucose (80-116) mg/dL Lactic Acid (0.4-2.0) mmol/L Calcium (8.6-10.2) mg/dL Total Bilirubin (0.1-1.3) mg/dL AST (5-25) IU/L ALT (12-36) U/L Alkaline Phosphatase (56-112) IU/L Troponin I (4.0-60.3) pg/mL C-Reactive Protein (0.5-0.9) mg/dL NT-Pro-B Natriuret Pep (<=125) pg/mL Total Protein (6.0-8.0) g/dL Albumin (3.2-4.6) g/dL Globulin g/dL Albumin/Globulin Ratio Urine Color (YELLOW) Urine Appearance (CLEAR) Urine pH (5.0-6.5) Ur Specific [place] (1.010-1.025) Urine Protein (NEGATIVE) mg/dL Urine Glucose (UA) (NORMAL) mg/dL Urine Ketones (NEGATIVE) mg/dL Urine Occult Blood (NEGATIVE) Urine Nitrite (NEGATIVE) Urine Bilirubin (NEGATIVE) Urine Urobilinogen (NEGATIVE) mg/dL Ur Leukocyte Esterase (NEGATIVE) Urine RBC (0-5) Urine WBC (0-5) Ur Squamous Epith Cells (NS,R,O) Urine Bacteria (NS) Urine Mucus (NS) SARS-CoV-2 RNA (TIFFANIE) (NEGATIVE) Group A Strep (PCR) Not detected (NOT DETECT) Result Diagrams: 09/05/20 07:00 09/05/20 07:00 Phill Results Last 24 hrs: Microbiology 09/05/20 08:15 Influenza Type A Antigen Screen - Final Nasal, Unspecified NEGATIVE INFLUENZA A VIRUS AG REFERENCE RANGE: NEGATIVE Influenza Type B Antigen Screen - Final NEGATIVE INFLUENZA B VIRUS AG REFERENCE RANGE: NEGATIVE Sepsis Event Note - Evaluation Sepsis Screening Result: No Definite Risk - Focused Exam Vital Signs: Vital Signs Temp Pulse Resp BP BP Pulse Ox Pulse Ox 09/05/20 09:35 99.5 F 118 H 20 135/79 94 L 94 L 09/05/20 08:20 98.7 F 96 19 142/77 H 95 09/05/20 06:31 98.4 F 113 H 18 143/79 H 96 *Q Meaningful Use (ADM) - VTE Risk Assess *Q Each Risk Factor Represents 1 Point: Serious lung disease including pneumonia Total Score 1 Point Risk Factors: 1 Each Risk Factor Represents 2 Points: Age 60 - 74 Years Total Score 2 Point Risk Factors: 2 Each Risk Factor Represents 3 Points: None Total Score 3 Point Risk Factors: 0 Each Risk Factor Represents 5 Points: None Total Score 5 Point Risk Factors: 0 Venous Thromboembolism Risk Factor Score *Q: 3 - Problem List (1) Acute bronchitis with bronchospasm SNOMED Code(s): 16935174 ICD Code: J20.9 - ACUTE BRONCHITIS, UNSPECIFIED Status: Acute Current Visit: Yes (2) Acute respiratory alkalosis SNOMED Code(s): 97239907 ICD Code: E87.3 - ALKALOSIS Status: Acute Current Visit: Yes (3) Elevated C-reactive protein (CRP) SNOMED Code(s): 064632307459041 ICD Code: R79.82 - ELEVATED C-REACTIVE PROTEIN (CRP) Status: Acute Current Visit: Yes (4) Elevated WBC count SNOMED Code(s): 671630723, 094496665 ICD Code: D72.829 - ELEVATED WHITE BLOOD CELL COUNT, UNSPECIFIED Status: Acute Current Visit: Yes (5) Fever SNOMED Code(s): 008047315 ICD Code: R50.9 - FEVER, UNSPECIFIED Status: Acute Current Visit: Yes (6) Ketonuria SNOMED Code(s): 991310556 ICD Code: R82.4 - ACETONURIA Status: Acute Current Visit: Yes (7) Left shift SNOMED Code(s): 17058797 ICD Code: D72.89 - OTHER SPECIFIED DISORDERS OF WHITE BLOOD CELLS Status: Acute Current Visit: Yes (8) Moderate dehydration SNOMED Code(s): 4800154118284 ICD Code: E86.0 - DEHYDRATION Status: Acute Current Visit: Yes (9) Former smoker SNOMED Code(s): 8507562 ICD Code: Z87.891 - PERSONAL HISTORY OF NICOTINE DEPENDENCE Status: Chronic Current Visit: Yes Problem List Initiated/Reviewed/Updated: Yes Orders Last 24hrs: Active Orders 24 hr Category Date Time Status Patient Status [ADT] Routine ADT 09/05/20 09:21 Active Notify Provider [RC] PRN Care 09/05/20 09:21 Active Oxygen Therapy [RC] ASDIRECTED Care 09/05/20 09:21 Active RT Aerosol Therapy [RC] ASDIRECTED Care 09/05/20 07:01 Active RT Incentive Spirometry [RC] Q1HWA Care 09/05/20 09:21 Active Ready for Discharge [RC] PER UNIT ROUTINE Care 09/05/20 10:13 Ordered Up ad Stella [RC] ASDIRECTED Care 09/05/20 09:21 Active VTE/DVT Education [RC] Per Unit Routine Care 09/05/20 09:21 Active Vital Signs [RC] Q4H Care 09/05/20 09:21 Active Regular Diet [DIET] Diet 09/05/20 Lunch Active CXR [Chest 2V] [CR] Stat Exams 09/05/20 06:49 Taken BASIC METABOLIC PANEL,BMP [CHEM] Routine Lab 09/06/20 06:00 Ordered CBC WITH AUTO DIFF [HEME] Routine Lab 09/06/20 06:00 Ordered CULTURE BLOOD [BC] Urgent Lab 09/05/20 07:32 Received CULTURE BLOOD [BC] Urgent Lab 09/05/20 07:37 Received Acetaminophen [Tylenol Extra Strength] Med 09/05/20 09:43 Active 500 mg PO Q6H PRN Albuterol/Ipratropium [DuoNeb 3.0-0.5 MG/3 ML] Med 09/05/20 11:00 Active 3 ml NEB QIDRT Ibuprofen [Motrin] Med 09/05/20 09:43 Active 200 mg PO Q6H PRN Levofloxacin/Dextrose 5%-Water [Levaquin in D5W 500 MG/ Med 09/06/20 09:30 Active 100 ML] 500 mg Premix Bag 1 bag IV Q24H Pantoprazole [ProTONIX] Med 09/05/20 09:00 Ordered 40 mg PO DAILY Rosuvastatin [Crestor] Med 09/05/20 09:30 Ordered 10 mg PO DAILY Sodium Chloride 0.9% [Normal Saline] 1,000 ml Med 09/05/20 09:30 Active IV ASDIRECTED lisinopriL [Prinivil] Med 09/05/20 09:00 Ordered 10 mg PO DAILY methylPREDNISolone Sod Succ [Solu-MEDROL] Med 09/06/20 09:00 Active 125 mg IV DAILY Antiembolic Hose [OM.PC] Per Unit Routine Oth 09/05/20 09:26 Ordered Blood Culture x2 Reflex Set [OM.PC] Urgent Oth 09/05/20 07:14 Ordered Isolation [COMM] Routine Oth 09/05/20 07:17 Ordered Resuscitation Status Routine Resus Stat 09/05/20 09:21 Ordered EKG 12 Lead [EK] Routine Ther 09/05/20 07:01 Ordered Medication Orders Acetaminophen (Acetaminophen 500 Mg Tab) 500 mg PO Q6H PRN PRN Reason: Pain/Fever Albuterol/Ipratropium (Albuterol/Ipratropium 3.0-0.5 Mg/3 Ml Neb Soln) 3 ml NEB QIDRT CHACHA Sodium Chloride (Normal Saline) 1,000 mls @ 100 mls/hr IV ASDIRECTED [facility] Last Admin: 09/05/20 10:02 Dose: 100 mls/hr Documented by: CHRISTOPHER Levofloxacin/Dextrose 500 mg/ (Premix) 100 mls @ 100 mls/hr IV Q24H CHACHA Stop: 09/11/20 09:31 Ibuprofen (Ibuprofen 200 Mg Tab) 200 mg PO Q6H PRN PRN Reason: Pain/Fever Lisinopril (Lisinopril 10 Mg Tab) 10 mg PO DAILY [facility] Methylprednisolone Sodium Succinate (Methylprednisolone Sodium Succinate 125 Mg/2 Ml Sdv) 125 mg IV DAILY [facility] Stop: 09/09/20 09:01 Pantoprazole Sodium (Pantoprazole 40 Mg Tab.Cr) 40 mg PO DAILY CHACHA Rosuvastatin Calcium (Rosuvastatin 10 Mg Tab) 10 mg PO DAILY [facility] Assessment/Plan Comment:: 1. Admit for observation for Acute Bronchitis, history of smoking, Fever, Leukocytosis. 2. Bronchitis: Levofloxacin 750 mg q24h given in ER, Levofloxacin 500 mg q24h ordered for tomorrow. NS 1L bolus given in ER, reduced rate to 100 ml/hr. CBC, BMP tomorrow. DuoNebs qid & prn shortness of breath. SoluMedrol 125 mg IV x 1 in ER. CXR negative for opacities. 3. Dehydration: ketouria, NS 1L bolus in ER slowed rate to 100 ml/hr. 4. Diet: Regular. 5. Activity: as tolerated. 6. DVT prophylaxis: ambulate, TEDs hose BLE. 7. CODE STATUS: FULL. 8. This note also serves as DISCHARGE SUMMARY: after visiting with Eli, upon finding out that she was a [place] patient and was on her way to [place] but couldn't make there so stopped here; I called [facility] spoke with Nurse coordinator and Hospitalist, reviewed labs/studies, they have accepted patient in transfer to their facility. She will go by ground ambulance as she is on IV fluids, need hemodynamic monitoring and medical reception present. She is in agreement with transfer. - Mortality Measure Prognosis:: Good
[2020-09-05] MEDS ORDERED: Albuterol/Ipratropium 3.0-0.5 MG/3 ML Neb Soln NEB SCH (11:00)
[2020-09-06] MEDS ORDERED: methylPREDNISolone Sodium Succinate 125 MG/2 ML SDV IV SCH (09:00)
[2020-09-06] MEDS ORDERED: Levofloxacin/Dextrose 5%-Water 500 MG in Premix Bag 1 BAG IV SCH (09:30)
== END 2020-09-05 12:20 ==
LOC: FB.ED 06:24 → FB.MS 09:12
PROVIDERS: ADMIT Family Medicine; ATTEND Family Medicine
DX: J20.9 Acute bronchitis, unspecified (principal); E87.3 Alkalosis; R79.82 Elevated C-reactive protein (CRP); D72.829 Elevated white blood cell count, unspecified; R82.4 Acetonuria; D72.89 Other specified disorders of white blood cells; E86.0 Dehydration; Z87.891 Personal history of nicotine dependence; E78.00 Pure hypercholesterolemia, unspecified; I10 Essential (primary) hypertension; H92.09 Otalgia, unspecified ear; J22 Unspecified acute lower respiratory infection; Z79.899 Other long term (current) drug therapy; Z20.822 Contact with and (suspected) exposure to COVID-19
CPT/HCPCS: 36415; 71046; 80053; 81001; 83605; 83880; 84484; 85025; 86140; 87040; 87635; 87651; 87804; 93005; 96365; 96375; 99285; A9270; J1885; J1956; J2930; J7030; G0378; J7620-GY; U0002

== ENCOUNTER 2020-11-17 18:58 | Emergency (ER) | payer OTHER, MEDICARE ==
--- NOTE | 2020-11-17 19:21 | EDM.PDOC ---
ED HPI GENERAL MEDICAL PROBLEM - General Chief Complaint: Upper Extremity Injury/Pain Stated Complaint: RT HAND INJURY Time Seen by Provider: 11/17/20 19:10 Source of Information: Reports: Patient, Old Records History Limitations: Reports: No Limitations - History of Present Illness INITIAL COMMENTS - FREE TEXT/NARRATIVE: 70 yo female struck the counter top in her home with her R fist hitting the ulnar side of her prox fist on the counter which resulted in immediate swelling and some pain. The swelling has gone down since then, but now has ecchymosis to area. 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 (see below) (none) right wrist/hand Pain Score (Numeric/FACES): 0 - Related Data Allergies Allergy/AdvReac Type Severity Reaction Status Date / Time No Known Allergies Allergy Verified 09/05/20 10:12 Home Meds: Home Meds Acetaminophen [Tactinal] 650 mg PO Q4H PRN 09/05/20 [History] Calcium Carbonate/Vitamin D3 [Calcium 600-Vit D3 800 Tab] 1 tab PO DAILY 09/05/20 [History] Ferrous Sulfate [Slow Release Iron] 250 mg PO DAILY 09/05/20 [History] Ibuprofen 200 mg PO Q6H PRN 09/05/20 [History] Pantoprazole Sodium [Protonix] 40 mg PO DAILY 09/05/20 [History] Rosuvastatin [Crestor] 10 mg PO DAILY 09/05/20 [History] lisinopriL [Lisinopril] 10 mg PO DAILY 09/05/20 [History] Past Medical History HEENT History: Reports: Cataract, Glaucoma, Hard of Hearing Cardiovascular History: Reports: High Cholesterol, Hypertension Respiratory History: Reports: Bronchitis, Recurrent Gastrointestinal History: Reports: GERD 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 Denies: Wound Neurological: Reports: No Symptoms ED EXAM, GENERAL - Physical Exam Exam: See Below Exam Limited By: No Limitations General Appearance: Alert, WD/WN, No Apparent Distress Extremities: Normal Range of Motion, Pedal Edema (slight swelling present to lateral R wrist and prox hand). No: Normal Inspection, Non-Tender, No Pedal Edema, Increased Warmth Neurological: Alert, Oriented, CN II-XII Intact, Normal Cognition, No Motor/Sensory Deficits Skin Exam: Warm, Dry, Intact, No Rash, Ecchymosis (lateral R wrist and hand). No: Normal Color, Wound/Incision Course - Vital Signs Last Recorded V/S: Last Vital Signs Temp 36.5 C 11/17/20 19:50 Pulse 86 11/17/20 19:50 Resp 18 11/17/20 19:50 BP 142/66 H 11/17/20 19:50 Pulse Ox 96 11/17/20 19:50 - Orders/Labs/Meds Orders: Active Orders 24 hr Category Date Time Status Wrist 2V Rt [CR] Stat Exams 11/17/20 19:17 Taken - Radiology Interpretation Free Text/Narrative:: R wrist X-ray-neg Departure - Departure Time of Disposition: 20:00 Disposition: Home, Self-Care 01 Condition: Good Clinical Impression: Ecchymosis of wrist - Discharge Information *PRESCRIPTION DRUG MONITORING PROGRAM REVIEWED*: Not Applicable *COPY OF PRESCRIPTION DRUG MONITORING REPORT IN PATIENT SHEN: Not Applicable Referrals: PCP,Not In Area [Primary Care Provider] - Forms: ED Department Discharge Additional Instructions: Take ibuprofen and/or acetaminophen for pain. Recheck as needed. Sepsis Event Note (ED) - Focused Exam Vital Signs: Vital Signs Temp Pulse Resp BP Pulse Ox 11/17/20 19:50 36.5 C 86 18 142/66 H 96 - My Orders Last 24 Hours: My Active Orders 11/17/20 19:17 Wrist 2V Rt [CR] Stat - Assessment/Plan Last 24 Hours: My Active Orders 11/17/20 19:17 Wrist 2V Rt [CR] Stat
--- NOTE | 2020-11-18 14:01 | CR ---
RIGHT WRIST TWO VIEWS INDICATION: Direct blow to ulnar side of wrist. FINDINGS: Frontal and lateral views of the right wrist revealed no evidence of an acute fracture, dislocation, or other acute bone or joint abnormality. Degenerative changes are noted at the navicular-multangular joints and minimally at the fifth metacarpal-carpal joint and first metacarpal-carpal joint. No other bone or joint abnormality was identified. Soft tissue swelling is noted overlying the ulnar side of the wrist. If occult fracture site is suspected clinically - if symptoms persist - reexamination in 10 to 14 days may be helpful. [id number]
== END 2020-11-17 20:21 | disposition home or self-care (01) ==
LOC: FB.ED 18:58
DX: S60.211A Contusion of right wrist, initial encounter (principal); E78.00 Pure hypercholesterolemia, unspecified; I10 Essential (primary) hypertension; K21.9 Gastro-esophageal reflux disease without esophagitis; Z79.899 Other long term (current) drug therapy; W22.09XA Striking against other stationary object, initial encounter; Y92.009 Unspecified place in unspecified non-institutional (private) residence as the place of occurrence of the external cause
CPT/HCPCS: 73100-RT; 99283-25